=== PATIENT | male | born 2005 | race Caucasian/White ===

== ENCOUNTER → 2025-02-19 | Outpatient (CLI) | payer BC, SELFPAY ==
[2025-02-19 10:49] LABS: AST(SGOT) 34 U/L (<=37); Alanine Aminotransfer ALT/SGPT 37 U/L (<=46); Cholesterol 166 mg/dL (<=190); Low Density Lipoprotein Calc. 106 mg/dL; Triglycerides 109 mg/dL; Very Low Density Lipoprotein 22 mg/dL (5-40); cholesterol:hdl ratio screen 4.31
[2025-02-20 04:07] LABS: LDL, Direct 120295 103 mg/dL (0-109)
== END | disposition home or self-care (01) ==
LOC: MTLAB 09:18
PROVIDERS: Referring Provider Physician Assistant; Visit Provider Physician Assistant
DX: L70.0 Acne vulgaris (principal)
CPT/HCPCS: 36415; 80061; 83721; 84450; 84460